=== PATIENT | female | born 1950 | race Caucasian/White ===

== ENCOUNTER 2017-05-31 16:31 | Emergency (ER) | payer SELFPAY ==
--- NOTE | 2017-05-31 16:43 | Emergency Department Report ---
Chief Complaint: Syncope Stated Complaint: POSS STROKE Time Seen by Provider: 05/31/17 16:37 - HPI History of Present Illness: PT passed out today. loc 1-2 minutes. confusion after she first came to. pt his the back of her head. PT is on ASA. - ROS Review of Systems: + headache - posterior - neck pain - Exam Physical Exam: PT is alert and appropriate gcs 15 steady gait MSE screening note: Focused history and physical exam performed. Due to findings the following was ordered: ekg, labs, xr, ct ED Disposition for MSE Condition: Stable
[2017-05-31 16:59] LABS: Basophils % (Auto) 0.3 % (0.0-1.8); Eosinophils % (Auto) 1.4 % (0.0-4.3); Hematocrit 40.1 % (30.3-42.9); Hemoglobin 12.9 gm/dl (10.1-14.3); Mean Corpuscular HGB Conc 32 % (30-34); Mean Corpuscular Hemoglobin 29 pg (28-32); Mean Corpuscular Volume 90 fl (79-97); Platelet Count 176 K/mm3 (140-440); Red Blood Count 4.48 M/mm3 (3.65-5.03); Red Cell Distribution Width 13.9 % (13.2-15.2); White Blood Count 9.6 K/mm3 (4.5-11.0)
[2017-05-31 17:16] LABS: INR 1.04 (0.87-1.13)
[2017-05-31 17:17] LABS: Partial Thromboplastin Time 29.8 Sec. (24.2-36.6)
[2017-05-31 17:24] LABS: Creatine Kinase MB 1.9 ng/mL (0.0-4.0)
[2017-05-31 17:26] LABS: Alanine Aminotransferase 27 units/L (7-56); Albumin 4.3 g/dL (3.9-5); Albumin/Globulin Ratio 1.1 %; Alkaline Phosphatase 79 units/L (35-129); Anion Gap 22 mmol/L; BUN/Creatinine Ratio 13.75; Blood Urea Nitrogen 11 mg/dL (7-17); Calcium 9.6 mg/dL (8.4-10.2); Carbon Dioxide 23 mmol/L (22-30); Chloride 100.7 mmol/L (98-107); Creatine Kinase 124 units/L (30-135); Glucose 134 mg/dL (65-100); Potassium 4.5 mmol/L (3.6-5.0); Sodium 141 mmol/L (137-145); Total Protein 8.3 g/dL (6.3-8.2)
--- NOTE | 2017-05-31 18:00 | Cat Scan Report ---
FINAL REPORT EXAM: CT HEAD/BRAIN WO CON HISTORY: Syncope TECHNIQUE: CT examination of the head without IV contrast PRIORS: None. FINDINGS: Minimal mucosal thickening left maxillary sinus. No acute air-fluid level visualized in the included air-filled sinuses. Bone windows demonstrate no acute fracture. There is ventricular and sulcal prominence compatible with global cerebrocortical atrophy. The brain contains no mass, mass effect, hemorrhage, or acute infarct. There is no extra-axial intracranial bleed, brain bleed, or midline shift. IMPRESSION: No acute CVA, intracranial bleed, or brain mass
[2017-05-31 21:46] VITALS: BP 161/72
--- NOTE | 2017-06-01 07:55 | XRay Report ---
AP CHEST :05/31/17 17:16 CLINICAL: Syncope. COMPARISON:None. FINDINGS: Normal heart and pulmonary vasculature. The lungs are normally expanded and clear. Dextroscoliosis and degenerative changes in the spine. IMPRESSION: No acute cardiopulmonary process.
== END 2017-06-01 01:05 | disposition left against medical advice (07) ==
LOC: ED 16:31
DX: R55 Syncope and collapse (principal); Z53.21 Procedure and treatment not carried out due to patient leaving prior to being seen by health care provider
CPT/HCPCS: 36415; 70450; 71010; 80053; 82550; 82553; 84484; 85025; 85610; 85730; 93005; 93010